=== PATIENT | female | born 1990 | race Caucasian/White ===

== ENCOUNTER 2021-10-05 19:55 | Emergency (ER) | payer OTHER ==
[2021-10-05 20:12] VITALS: BP 117/76; PULSE 60; TEMP 98; BMI 32.8
[2021-10-05] MEDS ORDERED: ACETAMINOPHEN 500 MG TABLET (FP) PO ONE (21:33)
[2021-10-05] MEDS ORDERED: ACETAMINOPHEN 500 MG TABLET (FP) ONE (22:28)
[2021-10-05 22:38] LABS: BASO % 0.6 % (0-2.0); EOS % 1.9 % (0-4.5); HEMATOCRIT 38.1 % (32.4-45.2); HEMOGLOBIN 13.2 GM/dL (10.7-15.3); LYMPH % 39.5 % (8-40); MCH 31.2 pg (25.7-33.7); MCHC 34.5 g/dl (32.0-36.0); MEAN CELL VOLUME 90.2 fl (80-96); MEAN PLT VOLUME 8.4 fl (7.5-11.1); MONO % 4.8 % (3.8-10.2); NEUT % 53.2 % (42.8-82.8); PLATELET COUNT 215 10^3/uL (134-434); RBC 4.22 M/mm3 (3.60-5.2); RDW 12.6 % (11.6-15.6); WHITE BLOOD COUNT 6.1 K/mm3 (4.0-10.0)
[2021-10-05 22:55] LABS: CHLORIDE 107 mmol/L (98-107); SODIUM 141 mmol/L (136-145)
[2021-10-05 22:57] LABS: ALBUMIN 3.7 g/dl (3.4-5.0); ANION GAP 7 MMOL/L (8-16); BLOOD UREA NITROGEN 11.8 mg/dL (7-18); CALCIUM 8.8 mg/dL (8.5-10.1); CO2 27 mmol/L (21-32); GLUCOSE,RANDOM 110 mg/dL (74-106)
[2021-10-05 23:00] LABS: CREATININE 0.7 mg/dL (0.55-1.3); SGPT/ALT 14 U/L (13-61)
[2021-10-05 23:01] LABS: SGOT/AST 10 U/L (15-37)
[2021-10-05 23:02] LABS: BILIRUBIN,TOTAL 0.3 mg/dL (0.2-1); TOT PROT 6.9 g/dl (6.4-8.2)
[2021-10-05 23:03] LABS: ALK PHOS 65 U/L (45-117)
== END 2021-10-06 00:04 | disposition home or self-care (01) ==
LOC: JER 19:55
DX: R07.9 Chest pain, unspecified (principal)
CPT/HCPCS: 36415; 71046-TC-FY; 76641-TC-RT; 80053; 82550; 83735; 84484; 85025; 93005; 93010; 99285-25